=== PATIENT | male | born 2000 | race Caucasian/White ===

== ENCOUNTER → 2024-07-23 | Outpatient (CLI) | payer OTHER, SELFPAY ==
--- NOTE | 2024-07-23 10:37 | MRI_ITS ---
STUDY: MRI LUMBAR SPINE WITHOUT CONTRAST REASON FOR EXAM: Male, 23 years old. LUMBAR RADICULOPATHY TECHNIQUE: Standardized fat and water weighted pulse sequences were obtained in the sagittal and axial planes. COMPARISON: None FINDINGS: T11-T12: (Sagittal only). 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 Normal central canal and bilateral intervertebral neuroforamina. T12-L1: (Sagittal only). Normal endplates. Normal disc height, hydration and morphology. Normal central canal and bilateral intervertebral neural foramina. Straightening of the lumbar spine curvature. There is no substantial scoliosis. Normal conus medullaris that terminates at the mid L1 vertebral body level. L1-2: Normal endplates. Normal disc height, hydration and morphology. Normal bilateral facet joints. Normal central canal and bilateral lateral recesses. Normal bilateral intervertebral neural foramina. L2-3: Normal endplates. Normal disc height, hydration and morphology. Normal bilateral facet joints. Normal central canal and bilateral lateral recesses. Normal bilateral intervertebral neural foramina. L3-4: Schmorl''s node in the anterior L3 inferior endplate. Normal L4 superior endplate. Increased anterior disc space height due to small Schmorl''s node. Mild loss of disc hydration. Mild posterior disc space height narrowing. Small ventral extradural defect due to small posterior bulging annulus. Normal facet joints. Mild dorsal epidural lipomatosis. Mild ventral flattening central canal stenosis with an AP canal diameter of 9 mm. Normal bilateral lateral recesses. Normal bilateral intervertebral neuroforamina. L4-5: Normal endplates. Normal disc height, hydration and morphology. Normal bilateral facet joints. Normal central canal and bilateral lateral recesses. Normal bilateral intervertebral neural foramina. L5-S1: Normal endplates. Normal disc height, hydration and morphology. Normal bilateral facet joints. Normal central canal and bilateral lateral recesses. Normal bilateral intervertebral neural foramina. Normal visualized sacral ala. Normal visualized paraspinous soft tissue structures. MRI/Spine Lumbar (Routine) IMPRESSION: 1. Mild flattening central canal stenosis at L3-L4 disc space level with an AP canal diameter of 9 mm and tiny posterior bulging annulus. 2. Capacious thecal sac, bilateral lateral recesses and bilateral intervertebral neuroforamina in the remainder of the lumbar spine. 3. No MRI evidence of lumbar extruded disc fragment, disc protrusion or nerve root displacement. 4. No MRI evidence of degenerative inflammatory arthropathy or synovitis of the lumbar facet joints. Electronically Signed: Warren Connell MD at 8:38 EST ,
== END | disposition home or self-care (01) ==
PROVIDERS: Referring Provider Anesthesiology; Visit Provider Anesthesiology
DX: M54.16 Radiculopathy, lumbar region (principal)
CPT/HCPCS: 72148